=== PATIENT | female | born 1980 | race Two or more races ===

== ENCOUNTER 2018-06-23 17:43 | Emergency (ER) | payer OTHER ==
[~2018-06-23] VITALS: Ht 167.6 cm; Wt 56.7 kg
[2018-06-23] MEDS ORDERED: PROPRANOLOL HCL 20 MG TAB PO ONE (18:00)
[2018-06-23] MEDS ORDERED: PROPRANOLOL HCL 20 MG TAB ONE (18:08)
[2018-06-23 19:13] LABS: Basophils # (auto) 0 uL; Basophils % (auto) 0.3 % (0.0-2.0); Eosinophils # (auto) 0 uL; Eosinophils % (auto) 1.2 % (0.0-7.0); Hemoglobin 13.5 g/dL (12.2-16.2); Lymphocytes # (auto) 1.9 uL; Lymphocytes % (auto) 49.5 % (10.0-50.0); Mean Corpuscular Hgb Conc. 33.7 g/dL (32.0-36.0); Mean Corpuscular Volume 86.1 fL (80.0-100.0); Monocytes # (auto) 0.4 uL; Monocytes % (auto) 10.4 % (0.0-12.0); Neutrophils # (auto) 1.5 uL; Neutrophils % (auto) 38.6 % (37.0-80.0); Nucleated Red Blood Cells % 0.2 %; Platelet Count (auto) 159 10^3/uL (140-450); Red Blood Cells 4.64 10^6/uL (4.0-5.20); Red Cell Distribution Width 13.1 % (11.8-14.3); White Blood Cell 3.9 10^3/uL (4.4-10.8)
[2018-06-23 19:34] LABS: Albumin 3.7 g/dL (3.4-5.0); BUN/Creatinine Ratio 38.9; Bilirubin, Total 1.8 mg/dL (0.2-1.0); Potassium 3.8 mmol/L (3.5-5.1); Total Protein 7.6 g/dL (6.4-8.2)
[2018-06-23 22:01] LABS: Urine Blood Negative /uL (Negative); Urine Specific Gravity 1.026 (1.001-1.035); Urine WBC 3 /hpf (0 - 5)
[2018-06-23 22:02] LABS: Urine Bacteria FEW /hpf (None Seen); Urine Hyaline Cast FEW /lpf (0 - 2); Urine Mucus FEW (None Seen)
[2018-06-23 22:53] LABS: Alcohol, Urine < 3.0 mg/dL (0-5); Amphetamine Screen, Urine NEGATIVE (NEGATIVE); Barbiturate Scree,Urine NEGATIVE (NEGATIVE); Benzodiazephine Screen, Urine NEGATIVE (NEGATIVE); Cannabinoid Screen, Urine NEGATIVE (NEGATIVE); Cocaine Screen, Urine NEGATIVE (NEGATIVE); Opiate Scree,Urine NEGATIVE (NEGATIVE); Phencyclidine Screen, Urine NEGATIVE (NEGATIVE)
[2018-06-23 23:03] LABS: INR 0.93 (0.9-1.15); Partial Thromboplastin Time 26.1 sec (23.78-33.04)
[2018-06-24 00:44] VITALS: BP 124/73
== END 2018-06-24 00:55 | disposition home or self-care (01) ==
LOC: ER 17:47
DX: R06.02 Shortness of breath (principal); E07.89 Other specified disorders of thyroid; E05.00 Thyrotoxicosis with diffuse goiter without thyrotoxic crisis or storm
CPT/HCPCS: 36415; 71046; 80053; 80307; 81001; 84443; 84484; 85025; 85379; 85610; 85730; 93005; 99285; J7030

== ENCOUNTER 2025-04-12 06:06 | Emergency (ER) | payer MEDICAID, OTHER ==
[~2025-04-12] VITALS: Ht 167.6 cm; Wt 68.2 kg
--- NOTE | 2025-04-12 07:57 | ED.PDOC ---
HPI Comments A 45 year old female presents to the ED c/o laceration of right index finger. Patient states she accidentally slipped and fell in the shower yesterday night and when she was trying to catch herself she accidentally cut her right index finger on the metal frame of her shower door. Bleeding is controlled at this time. Denies any numbness to the affected finger. Denies tingling. Last tetanus shot unknown. Denies fever, SOB, chest pain, abdominal pain, nausea, vomiting, diarrhea, headache, dizziness, vision changes, or numbness/tingling of extremities. No other symptoms or modifying factors reported at this time. Patient is alert and oriented x4 and has a stable gait. Chief Complaint: Laceration Time Seen by MD: 06:31 Reviewed Notes: Nurses Notes, Medications, Allergies Allergies: Coded Allergies: NO KNOWN ALLERGIES (Unverified , 06/23/18) Home Meds Active Scripts Naproxen (Naproxen) 500 Mg Tab, 500 MG PO BIDPC for 10 Days, #20 TAB 0 Refills Prov:HEATHER CAMILO BEAMING INSPECTOR 04/12/25 Ciprofloxacin Hcl (Cipro) 500 Mg Tab, 1 TAB PO BID for 5 Days, #10 TAB 0 Refills Prov:HEATHER CAMILO BEAMING INSPECTOR 04/12/25 Information Source: Patient Mode of Arrival: Ambulatory Severity: Mild Severity of Laceration: Deformity Complexity: Simple Timing: Hours Prehospital treatment: None Laceration Location: Digit #2 (Right index finger) Mechanism: Metal Last Tetanus: > 5 Years Laceration Length (cm): 2 Skin Type: Linear Depth of Injury: Skin, SQ Tendon Injury: 0% Capillary Refill: < 3 seconds Tender: Mild Discharge: None Erythema: None Associated Signs and Symptoms: None Past Medical History PAST MEDICAL HISTORY: Thyroid Surgical History: Appendectomy PROFESSOR OF RELIGIOUS STUDIES History: No Pertinent PROFESSOR OF RELIGIOUS STUDIES History Family History Family History: Unknown Social History Smoker: Non-Smoker Alcohol: Denies ETOH Use Drugs: Denies Drug Use Lives In: Home Constitutional: denies: chills, diaphoresis, fatigue, fever, malaise, sweats, weakness, others EENTM: denies: blurred vision, double vision, ear bleeding, ear discharge, ear drainage, ear pain, ear ringing, eye pain, eye redness, hearing loss, mouth pain, mouth swelling, nasal discharge, nose bleeding, nose congestion, nose pain, photophobia, tearing, throat pain, throat swelling, voice changes, others Respiratory: denies: cough, hemoptysis, orthopnea, SOB at rest, shortness of breath, SOB with excertion, stridor, wheezing, others Cardiovascular: denies: chest pain, dizzy spells, diaphoresis, Dyspnea on exertion, edema, irregular heart beat, left arm pain, lightheadedness, palpitations, PND, syncope, others Gastrointestinal: denies: abdomen distended, abdominal pain, blood streaked bowels, constipated, diarrhea, dysphagia, difficulty swallowing, hematemesis, melena, nausea, poor appetite, poor fluid intake, rectal bleeding, rectal pain, vomiting, others Genitourinary: denies: abnormal vagina bleeding, burning, dyspareunia, dysuria, flank pain, frequency, hematuria, incontinence, pain, , vagina discharge, urgency, others Neurological: denies: dizziness, fainting, headache, left sided numbness, left sided weakness, numbness, paresthesia, pre-existing deficit, right sided numbness, right sided weakness, seizure, speech problems, tingling, tremors, weakness, others Musculoskeletal: denies: back pain, gout, joint pain, joint swelling, muscle pain, muscle stiffness, neck pain, others Integumetry: reports: laceration (laceration of right index finger); denies: bruises, change in color, change in hair/nails, dryness, lesions, lumps, rash, wounds, others Allergic/Immunocompromised: denies: Difficulty Healing, Frequent Infections, Hives, Itching, others Hematologic/Lymphatic: denies: anemia, blood clots, easy bleeding, easy bruis ing, swollen glands, others Endocrine: denies: excessive hunger, excessive sweating, excessive thirst, exc essive urination, flushing, intolerance to cold, intolerance to heat, unexplained weight gain, unexplained weight loss, others Psychiatric: denies: anxiety, bipolar disorder, depression, hopeless, panic disorder, schizophrenia, sleepless, suicidal, others All Other Systems: Reviewed and Negative Physical Exam General Appearance: No Apparent Distress, Normal HEENT: Normal ENT Inspection, Pharynx Normal, TMs Normal Neck: Full Range of Motion, Non-Tender, Normal, Normal Inspection Respiratory: Chest Non-Tender, Lungs Clear, No Accessory Muscle Use, No Respiratory Distress, Normal Breath Sounds Cardiovascular: No Murmur, No Gallop, Regular Rate/Rhythm Breast Exam: Deferred Gastrointestinal: No Organomegaly, Non Tender, No Pulsatile Mass, Normal Bowel Sounds, Soft Genitalia: Deferred Pelvic: Deferred Rectal: Deferred Extremities: No calf tenderness, Normal capillary refill, Normal inspection, Normal range of motion, Non-tender, No pedal edema Musculoskeletal : Apperance: Normal Neurologic: Alert, live games dealer II-XII nml as Tested, No Motor Deficits, Normal Affect, Normal Mood, No Sensory Deficits Cerebellar Function: Normal Reflexes: Normal Skin: Dry, Lacerations (V-shaped laceration noted to volar aspect of 2nd phalanx between the metacarpal and PIP joint. No foreign body noted. No active bleeding. No surrounding erythema. Mild swelling. Full flexion and extension of the hand. FDS FDP intact. Neurovascular sensation intact. Cap refill less than 3 seconds), Normal Color, Warm Lymphatic: No Adenopathy Was a procedure done? Was a procedure done?: Yes Sedation Sedation?: No Laceration Repair : Location Right index finger Length 2 Anesthetic: Lidocaine, Without epi Laceration Repair Prep: Saline, by Irrigation Laceration Repair Wound Comple: epidermis/dermis repair Laceration Repair: Number of sutures, Skin, SQ, Size (4-0 Ethlion), Nylon, Simple Informed consent obtained: Yes Risks, benefits, and alternati: Yes Differential diagnosis Generic Laceration: Abrasion/Contusion, Laceration, Avulsion Differential Diagnosis: N/A X-Ray, Labs, Meds, VS Vital Signs Date Time Temp Pulse Resp B/P (MAP) Pulse Ox O2 Delivery O2 Flow Rate FiO2 04/12/25 09:32 97.5 99 16 134/86 (102) 99 97.5 04/12/25 09:32 99 16 99 Room Air 04/12/25 06:12 97.5 99 16 134/86 (102) 98 97.5 Current Medications Medications (Trade) Dose Ordered Sig/Deven Route Start Time Stop Time Status Last Admin Diphtheria/ Tetanus/Acell Pertussis (Boostrix T-Dap) 0.5 ml ONCE ONCE IM 04/12/25 08:00 04/12/25 08:01 DC 04/12/25 08:34 Ketorolac Tromethamine (Toradol Injection) 30 mg ONCE ONCE IM 04/12/25 08:45 04/12/25 08:46 DC 04/12/25 09:02 PATIENT: BHAVIN DE LA TORRECCT: [id number]: [id number] : 1980 LOC: ER ROOM / BED: / AGE / SEX: 45 / F ADM STATUS: REG ER SERVICE [id number] ORDERING PHYSICIAN: HEATHER CAMILO NP PROCEDURE(s): RHAN - R HAND 3 VIEW XRAY REASON: Injury to 2nd phalanx. r/o fracture ORDER NUMBER(s): [id number], ACCESSION NUMBER(s): [id number] CLINICAL INDICATION: trauma; r/o fracture TECHNIQUE: 3 radiographic views of the right hand were obtained. Comparison: None FINDINGS/IMPRESSION: There is no evidence of acute fracture or dislocation. 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 ATED BY: MEHREEN CLEVELAND MD DICTATED DATE/TIME: 04/12/25914 SIGNED BY: MEHREEN CLEVELAND MD SIGNED DATE/TIME: 04/12/25914 CC: X-Ray, Labs, Meds, VS Comment A 45 year old female presents to the ED c/o laceration of right index finger. Patient arrives alert and oriented, ABC's intact, afebrile, vital signs stable, saturating well in room air. Diagnostic imaging ordered by me and results interpreted by radiology: XR Hand RT Patient was given Tetanus 0.5ml IM. Tolerated medications with no adverse reaction. Procedure-laceration repair Location: Right index finger The skin edges of the laceration were infiltrated with a total of 4 mL of 1% lidocaine The skin surrounding the laceration was scrubbed with Betadine soaked sterile gauze The laceration was irrigated under high-pressure with a 60 mL syringe A total of 1L sterile water was used. Including diluted Betadine solution The laceration was prepped in sterile fashion with sterile drapes On examination under direct light, there was no foreign body seen The laceration was repaired in simple interrupted technique using Ethilon 4-0 sutures. A total of 4 sutures were placed. After repair, the laceration was 2 centimeters in length. There was no continuing bleeding on repair. There were no complications related to repair Antibiotics for grossly contaminated wounds/open fractures and bite wounds Cipro 500mg Naproxen 500mg * Tetanus prophylaxis: dT or Tdap 0.5, IM Education and follow-up instructions provided Wound check in 2 days Return sooner for signs of infection such as fevers, increased pain, redness, green, yellow discharge, or any concerns Keep wound dry for 24 to 48 hours; dry dressing may be changed Protect from sunlight and keep area clean and dry. Use soap and water if it gets dirty High risk of possible scarring and education provided on ways to minimize scarring after wound heals Also provided education on possible complications post procedure including wound dehiscence, infection, etc. Additional MDM Review of External, Non-ED records: External records reviewed. Discussion with independent historian history obtained from the patient Chronic conditions affecting care: None Social determinants of health affecting care: None Consideration of admission (observation or admission): I considered escalation of care to admission for this patient, however given the reassuring workup, the patient is safe for outpatient management. Images Reviewed?: Images reviewed and evaluated by me Time of 1ST Reevaluation: 09:16 Reevaluation 1ST: Improved Patient Education/Counseling: Diagnosis, Treatment, Need For Follow Up Family Education/Counseling: Diagnosis, Treatment, Need For Follow Up Departure 1 Departure Time of Disposition: 09:27 Impression: Primary Impression: Laceration of right index finger Qualified Codes: S61.210A - Laceration without foreign body of right index finger without damage to nail, initial encounter Disposition: HOME / SELF CARE / HOMELESS Condition: Stable Additional Instructions: Follow up with PCP in 1-2 days. Return to ED, PCP, or urgent care in 7-10 days for suture removal. Return to ED for any new or worsening symptoms. e-Prescriptions Naproxen (Naproxen) 500 Mg Tab 500 MG PO BIDPC for 10 Days, #20 TAB 0 Refills Prov: HEATHER CAMILO BEAMING INSPECTOR 04/12/25 Ciprofloxacin Hcl (Cipro) 500 Mg Tab 1 TAB PO BID for 5 Days, #10 TAB 0 Refills Prov: HEATHER CAMILO BEAMING INSPECTOR 04/12/25 Discharged With: Self Critical Care Note Critical Care Time?: No Stability Stability form required: No Heart Score Heart Score: Heart Score Response (Comments) Value History N/A 0 EKG N/A 0 Age N/A 0 Risk Factors N/A 0 Troponin N/A 0 Total 0 I personally scribed for HEATHER CAMILO NP ([email or web address]) on 04/12/25 at 07:57. Electr onically submitted by Dewey Yang ([email or web address]). I personally scribed for HEATHER CAMILO NP ([email or web address]) on 04/12/25 at 08:40. Electr onically submitted by Dewey Yang ([email or web address]). I personally scribed for HEATHER CAMILO NP ([email or web address]) on 04/12/25 at 08:41. Electr onically submitted by Dewey Yang ([email or web address]). HEATHER CAMILO NP Apr 12, 2025 07:57
[2025-04-12] MEDS: LIDOCAINE 1% HCL (LOCAL ANESTH.) INJ 20ML MDV ID ONE (08:00)
[2025-04-12] MEDS: NEOMYCIN-BACITRACIN-POLYM UNITDOSE PKG TOP OINT TOP ONE (08:00)
[2025-04-12] MEDS: TETANUS-DIPTH-ACEL PERTUSSIS 0.5ML SYR Tdap IM ONE (08:34)
[2025-04-12] MEDS: KETOROLAC TROMETH 30 MG/ML 1ML VIAL IM ONE (09:02)
--- NOTE | 2025-04-12 09:17 | DVH ---
CLINICAL INDICATION: trauma; r/o fracture TECHNIQUE: 3 radiographic views of the right hand were obtained. Comparison: None FINDINGS/IMPRESSION: There is no evidence of acute fracture or dislocation. 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
[2025-04-12] MEDS ORDERED: CIPR-173 PO (09:27)
[2025-04-12] MEDS ORDERED: NAPR-746 PO (09:27)
[2025-04-12 09:32] VITALS: BP 134/86; PULSE 99; RESP 16; TEMP 97.5; O2SAT 99
== END 2025-04-12 09:39 | disposition home or self-care (01) ==
LOC: ER 06:06
DX: S61.210A Laceration without foreign body of right index finger without damage to nail, initial encounter (principal); E03.9 Hypothyroidism, unspecified; Z90.49 Acquired absence of other specified parts of digestive tract; Z98.890 Other specified postprocedural states; W18.2XXA Fall in (into) shower or empty bathtub, initial encounter; Y93.E1 Activity, personal bathing and showering; Y92.89 Other specified places as the place of occurrence of the external cause; Y99.9 Unspecified external cause status
CPT/HCPCS: 12001; 73130; 90471; 90715; 96372; 99284; J1885; J2003

== ENCOUNTER 2025-04-14 08:03 | Emergency (ER) | payer MEDICAID ==
[~2025-04-14] VITALS: Ht 167.6 cm; Wt 70.1 kg
[~2025-04-14 08:03] MED LIST: CIPR-173 PO; NAPR-746 PO
--- NOTE | 2025-04-14 08:18 | ED.PDOC ---
History of Present Illness HPI Comments 45-year-old female presents with a chief complaint of wound recheck. Patient states that she had stitches placed to her right 1st finger and was told to come back to have her wound evaluated. Patient has no signs of infection or drainage at this time. Chief Complaint: Wound Check Time Seen by MD: 08:10 Reviewed Notes: Medications, Allergies Allergies: Coded Allergies: NO KNOWN ALLERGIES (Unverified , 06/23/18) Home Meds Active Scripts Naproxen (Naproxen) 500 Mg Tab, 500 MG PO BIDPC for 10 Days, #20 TAB 0 Refills Prov:HEATHER CAMILO BOILERMAKER SHIP 04/12/25 Ciprofloxacin Hcl (Cipro) 500 Mg Tab, 1 TAB PO BID for 5 Days, #10 TAB 0 Refills Prov:HEATHER CAMILO BOILERMAKER SHIP 04/12/25 Information Source: Patient Mode of Arrival: Ambulatory Severity: Moderate Timing: Days Duration: Since onset Prehospital treatment: None Past Medical History PAST MEDICAL HISTORY: Thyroid Surgical History: Appendectomy PROTECTIVE SIGNAL REPAIRER History: No Pertinent PROTECTIVE SIGNAL REPAIRER History Family History Family History: Unknown Social History Smoker: Non-Smoker Alcohol: Denies ETOH Use Drugs: Denies Drug Use Lives In: Home All Other Systems: Reviewed and Negative (SEE PER HPI) Physical Exam General Appearance: Moderate Distress, Normal HEENT: Normal ENT Inspection, Pharynx Normal, TMs Normal Neck: Full Range of Motion, Non-Tender, Normal, Normal Inspection Respiratory: Chest Non-Tender, Lungs Clear, No Accessory Muscle Use, No Res piratory Distress, Normal Breath Sounds Cardiovascular: No Edema, No JVD, No Murmur, No Gallop, Normal Peripheral Pulses, Regular Rate/Rhythm Breast Exam: Deferred Gastrointestinal: No Organomegaly, Non Tender, No Pulsatile Mass, Normal Bowel Sounds, Soft Genitalia: Deferred Pelvic: Deferred Rectal: Deferred Extremities: No calf tenderness, Normal capillary refill, Normal inspection, Normal range of motion, Non-tender, No pedal edema Musculoskeletal : Apperance: Normal Neurologic: Alert, electric tripper machine operator II-XII nml as Tested, No Motor Deficits, Normal Affect, Normal Mood, No Sensory Deficits Cerebellar Function: Normal Reflexes: Normal Skin: Dry, Normal Color, Warm, Wounds (Wound healing well) Peripheral Pulses: 3+ Radial (R), 3+ Radial (L) Lymphatic: No Adenopathy Was a procedure done? Was a procedure done?: No Differential Dx Considerations may include: Wound check X-Ray, Labs, Meds, VS Patient alert. Came for wound check. Healing well. Vitals stable. Answering questions. No sign of any distress. Stitches intact. Instructed to take her antibiotics. Explained to the patient. Was told to follow up with her primary care physician. Was told to come back if there is any problem. Time of 1ST Reevaluation: 08:11 Reevaluation 1ST: Unchanged Patient Education/Counseling: Diagnosis, Treatment, Prognosis Family Education/Counseling: No Family Present Departure 1 Departure Time of Disposition: 08:27 Impression: Primary Impression: Visit for wound check Disposition: HOME / SELF CARE / HOMELESS Condition: Good e-Prescriptions Ciprofloxacin Hcl (Cipro) 500 Mg Tab 1 TAB PO BID for 5 Days, #10 TAB 0 Refills Prov: JACINDA MITCHELL MD 04/14/25 Discharged With: Self Critical Care Note Critical Care Time?: No Stability Stability form required: No Heart Score Heart Score: Heart Score Response (Comments) Value History N/A 0 EKG N/A 0 Age N/A 0 Risk Factors N/A 0 Troponin N/A 0 Total 0 I personally scribed for JACINDA MITCHELL MD ([email or web address]) on 04/14/25 at 08:18. Electronically submitted by Vladimir Jacob ([email or web address]). JACINDA MITCHELL MD Apr 14, 2025 08:18
[2025-04-14 08:21] VITALS: BP 128/94; PULSE 95; RESP 16; TEMP 97.5; O2SAT 98
[2025-04-14] MEDS ORDERED: CIPR-173 PO (08:27)
== END 2025-04-14 09:17 | disposition home or self-care (01) ==
LOC: ER 08:03
DX: S61.210D Laceration without foreign body of right index finger without damage to nail, subsequent encounter (principal); Z90.49 Acquired absence of other specified parts of digestive tract; Z79.899 Other long term (current) drug therapy; X58.XXXD Exposure to other specified factors, subsequent encounter

== ENCOUNTER 2025-04-24 06:51 | Emergency (ER) | payer MEDICAID ==
[~2025-04-24] VITALS: Ht 167.6 cm; Wt 65.9 kg
[2025-04-24 07:05] VITALS: BP 137/84; PULSE 107; RESP 18; TEMP 98.5; O2SAT 97
--- NOTE | 2025-04-24 07:55 | ED.PDOC ---
History of Present Illness HPI Comments 45 year old female presents to the ED for the c/c of a Suture removal to the Right Index Finger. Pt states that she had 5 stitches placed on 04/12. No signs of infection Noted, full ROM, and sensation intact noted at this time. No other associated modifiers or symptoms at this time. Chief Complaint: Suture Removal Time Seen by MD: 07:50 Primary Care Provider: NONE Reviewed Notes: Nurses Notes, Medications, Allergies Allergies: Coded Allergies: NO KNOWN ALLERGIES (Unverified , 06/23/18) Home Meds Active Scripts Ciprofloxacin Hcl (Cipro) 500 Mg Tab, 1 TAB PO BID for 5 Days, #10 TAB 0 Refills Prov:JACINDA MITCHELL MD 04/14/25 Naproxen (Naproxen) 500 Mg Tab, 500 MG PO BIDPC for 10 Days, #20 TAB 0 Refills Prov:HEATHER CAMILO NP 04/12/25 Information Source: Patient Mode of Arrival: Ambulatory Severity: None Timing: Days Duration: Since onset, Days Prehospital treatment: None Past Medical History PAST MEDICAL HISTORY: Thyroid Surgical History: Appendectomy HOUSING ASSISTANT History: No Pertinent HOUSING ASSISTANT History Family History Family History: Unknown Social History Smoker: Non-Smoker Alcohol: Denies ETOH Use Drugs: Denies Drug Use Lives In: Home Constitutional: denies: chills, diaphoresis, fatigue, fever, malaise, sweats, weakness, others EENTM: denies: blurred vision, double vision, ear bleeding, ear discharge, ear drainage, ear pain, ear ringing, eye pain, eye redness, hearing loss, mouth pain, mouth swelling, nasal discharge, nose bleeding, nose congestion, nose pain, photophobia, tearing, throat pain, throat swelling, voice changes, others Respiratory: denies: cough, hemoptysis, orthopnea, SOB at rest, shortness of breath, SOB with excertion, stridor, wheezing, others Cardiovascular: denies: chest pain, dizzy spells, diaphoresis, Dyspnea on exertion, edema, irregular heart beat, left arm pain, lightheadedness, palpitations, PND, syncope, others Gastrointestinal: denies: abdomen distended, abdominal pain, blood streaked bowels, constipated, diarrhea, dysphagia, difficulty swallowing, hematemesis, melena, nausea, poor appetite, poor fluid intake, rectal bleeding, rectal pain, vomiting, others Genitourinary: denies: abnormal vagina bleeding, burning, dyspareunia, dysuria, flank pain, frequency, hematuria, incontinence, pain, , vagina discharge, urgency, others Neurological: denies: dizziness, fainting, headache, left sided numbness, left sided weakness, numbness, paresthesia, pre-existing deficit, right sided numbness, right sided weakness, seizure, speech problems, tingling, tremors, weakness, others Musculoskeletal: denies: back pain, gout, joint pain, joint swelling, muscle pain, muscle stiffness, neck pain, others Integumetry: denies: bruises, change in color, change in hair/nails, dryness, laceration, lesions, lumps, rash, wounds, others Allergic/Immunocompromised: denies: Difficulty Healing, Frequent Infections, Hives, Itching, others Hematologic/Lymphatic: denies: anemia, blood clots, easy bleeding, easy bruising, swollen glands, others Endocrine: denies: excessive hunger, excessive sweating, excessive thirst, excessive urination, flushing, intolerance to cold, intolerance to heat, unexplained weight gain, unexplained weight loss, others Psychiatric: denies: anxiety, bipolar disorder, depression, hopeless, panic disorder, schizophrenia, sleepless, suicidal, others All Other Systems: Reviewed and Negative Physical Exam General Appearance: No Apparent Distress, Normal HEENT: Normal ENT Inspection, Pharynx Normal, TMs Normal Neck: Full Range of Motion, Non-Tender, Normal, Normal Inspection Respiratory: Chest Non-Tender, Lungs Clear, No Accessory Muscle Use, No Respir atory Distress, Normal Breath Sounds Cardiovascular: No Murmur, No Gallop, Normal Peripheral Pulses, Regular Rate/Rhythm Breast Exam: Deferred Gastrointestinal: Non Tender, No Pulsatile Mass, Normal Bowel Sounds, Soft Genitalia: Deferred Pelvic: Deferred Rectal: Deferred Extremities: No calf tenderness, Normal capillary refill, Normal inspection, Normal range of motion, Non-tender, No pedal edema Musculoskeletal : Location: Right Extremity Location: Finger 2 (No signs of infection, full ROM, Sensation intact) Apperance: Normal Neurologic: Alert, No Motor Deficits, Normal Affect, Normal Mood, No Sensory Deficits Cerebellar Function: Normal Reflexes: Normal Skin: Dry, Normal Color, Warm Lymphatic: No Adenopathy Was a procedure done? Was a procedure done?: No Differential Dx Considerations may include: suture removal X-Ray, Labs, Meds, VS Vital Signs Date Time Temp Pulse Resp B/P (MAP) Pulse Ox O2 Delivery O2 Flow Rate FiO2 04/24/25 07:05 98.5 107 18 137/84 (101) 97 98.5 X-Ray, Labs, Meds, VS Comment 45 year old female presents to the ED for the c/c of a Suture removal to the Right Index Finger. Alcohol swab used to clean area thoroughly. Used sterile suture removal kit to remove sutures. Clean, dry, intact. No discharge seen. Education provided to keep area clean and dry. If gets soiled, use soap and water to clean. Watch out for signs and symptoms of infection including fever, chills, yellow or green discharge, increased pain, swelling etc. Time of 1ST Reevaluation: 08:20 Reevaluation 1ST: Improved Patient Education/Counseling: Diagnosis, Treatment Family Education/Counseling: No Family Present SEPSIS Sepsis Screen Date sepsis recognized/suspect: Apr 24, 2025 Time Sepsis recognized/suspect: 704 Recent Procedure: No On Antibiotic Therapy: No Respiratory Rate >20: No Heart Rate >90: Yes Temp<36 C (96.8 F) or >38.3 C: No SBP <90 or MAP <65 mmHG: No New Acute Mental Status Change: No Is the patient on CPAP, BIPAP,: No Vital Signs Date Time Temp Pulse Resp B/P (MAP) Pulse Ox O2 Delivery O2 Flow Rate FiO2 04/24/25 07:05 98.5 107 18 137/84 (101) 97 98.5 Departure 1 Departure Time of Disposition: 08:22 Impression: Primary Impression: Encounter for removal of sutures Disposition: 01 HOME / SELF CARE / HOMELESS Condition: Stable Discharged With: Self Critical Care Note Critical Care Time?: No Stability Stability form required: No Heart Score Heart Score: Heart Score Response (Comments) Value History N/A 0 EKG N/A 0 Age N/A 0 Risk Factors N/A 0 Troponin N/A 0 Total 0 I personally scribed for HEATHER CAMILO NP ([email or web address]) on 04/24/25 at 07:55. Electronically submitted by Yehuda Yip ([email or web address]). HEATHER CAMILO NP Apr 24, 2025 07:55
== END 2025-04-24 08:39 | disposition home or self-care (01) ==
LOC: ER 06:51
DX: S61.210D Laceration without foreign body of right index finger without damage to nail, subsequent encounter (principal); Z90.49 Acquired absence of other specified parts of digestive tract; Z79.899 Other long term (current) drug therapy; Z48.02 Encounter for removal of sutures; X58.XXXD Exposure to other specified factors, subsequent encounter